=== PATIENT | male | born 1980 | race Two or more races ===

== ENCOUNTER 2023-04-07 10:09 | Outpatient (CLI) | payer OTHER ==
--- NOTE | 2023-04-07 10:52 | Sleep Patient Instructions ---
Sleep Center Visit Summary - Patient Visit Information Reason for Visit: Initial Consult - Patient Instructions Additional Instructions: You will continue with CPAP therapy with pressure changed to 10-12 cmH2O. A supply prescription will be updated with your DME. I have added a mask fitting for the nasal mask. The Cpap supply company should reach out to you to schedule this. We encourage you to continue to try to lose weight. Please follow up with the sleep care office in 1-2 months. - Clinic Information Contact: [facility] [address] [place] [address] [email or web address] T: [phone]
--- NOTE | 2023-04-07 11:00 | SLEEP CARE CONSULTATION ---
Information from patient questionnaire entered by Kisha Winters. I have reviewed and concur with the information entered by Kisha Winters. This document represents the service I personally performed and the decisions made by , Sana Avila ARNP. History of Present Illness Service Date and Time: 04/07/2023 1009 Reason for Visit: New patient, Previously diagnosed sleep apnea, sleep apnea on CPAP therapy Chief Complaint: reports: Other (Update supplies) Date of Onset: 2020 Usual bedtime: 10 PM Time it takes to fall asleep: 10 min Snores at night: Yes Observed to quit breathing while asleep: No Sleeps alone due to snoring: No Number of times waking at night: Once Reasons for waking at night: reports: Bathroom. denies: Choking, Gasping for air Toss, Turn, or Twitch while sleeping: Yes Recalls having dreams: Yes Usually gets out of bed at: 5-6 AM Feels refreshed in the morning: Yes Morning headache: Yes (Sometimes; 2 times a month; resolves in few hours) Sleepy or fatigued during the day: Yes Ever fallen asleep while driving: No Takes day naps: Yes (not often) Dreams during day naps: Yes Prior sleep studies: Yes Year and Where: 07/2021 [facility] Type of Sleep Study: Polysomnography Additional HPI information: JESSICA JEAN was previously diagnosed to have moderate, AHI 24.8, obstructive sleep apnea-hypopnea syndrome as seen in PSG dated 07/31/2021 through [facility] and returned today to establish care for CPAP therapy. - Parasomnia Symptoms Ever been unable to move upon waking from sleep: No Walks in sleep: No Talks in sleep: No Ever acted out dreams in sleep: No Ever felt weak in the knees when startled or emotional: No Bothered by creepy, crawly, restless sensations in legs: No Problems with memory or concentration: No CPAP Compliance Data - Data Reviewed with Patient Average duration of nightly device use: 1 hour 37 minutes Compliance rate %: 1 (15180 days used) Current pressure setting (cmH2O): 5-15 (median 11.8, avg 13.2, max 13.4) Average residual AHI: 3.2 Central apnea: 1.8 Obstructive apnea: 0.6 Hypopnea: 0.6 Average large leak: 4.7 L/min Compliance data discussion: He has a ResMed Airsense 11, setup in 10/2021. He has gotten his supplies from [facility]. He uses a Resmed AirFit F30 full face mask. He does have a back up mask. He last time he changed the cushion was 2 months. 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 denies: air blowing in eyes, mask leak noise, condensation in mask/hose, nasal congestion, epistaxis (dry mouth) Observed to snore while using device: No Current pressure setting perceived as: too high On therapy, patient: reports: other (not noticing difference because not able to use for good periods). 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 Patient is and lives in [place]. Have you smoked in the past 12 months: No Alcohol use: No Caffeine use: Yes Caffeine amount and frequency: 12 oz daily Family History Family history of sleep disordered breathing: Yes Family Hx Sleep Apnea: Father: Snoring Allergies and Home Medications Known drug allergies: No Drug allergies reviewed: Yes Home medication list reviewed: Yes Allergy and home medication list: Home Medications Medication Instructions Recorded Confirmed Last Taken Type No Known Home Medications 04/07/23 04/07/23 Unknown History Review of Systems Cardiovascular: denies: high blood pressure Respiratory: reports: wheeze Neurological: denies: headaches Ear/Nose/Throat: reports: wisdom teeth removed. denies: tonsillectomy Musculoskeletal: reports: joint pain (/stiffness), back pain, muscle pain or cramping, mobility problems Physical Exam Vital signs obtained and entered by: Sana Rodarte NP Blood Pressure: 120/74 Cuff size: wrist (left) Heart Rate: 81 O2 Saturation: 92 Height: 5 ft 8 in Weight: 211 lb 9.6 oz (with boots/fatigues on) Body Mass Index: 32.1 BMI Classification: Obese Neck circumference: 16.5 (inches) Mouth and throat: narrow oropharynx Soft palate: long Hard palate: arched Uvula: normal Uvula visualization: 25% Mallampati Class III Tongue: enlarged in size with teeth triana on lateral edges Tonsils: small Neck: normal w/o lymphadenopathy or thyromegaly Heart: regular rate and rhythm Lungs: clear bilaterally Impression and Plan 1. Obstructive Sleep Apnea-Hypopnea Syndrome, moderate, with poor treatment compliance and good apnea control. 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 He got it shipped to him later but has really only started using it again in March. He tries to use it but once the pressure goes up he feels it is too high and takes it off within the first 2 hours. He has occasionally been able to keep it on four hours. He would also like to try a different mask because he feels like the fullface mask is uncomfortable. He would like a nasal mask but I discussed with him because of oral dryness he is experiencing from oral venting that he will need to try to use a chinstrap. He voiced understanding. The patients pressure will be changed to autoCPAP 10-12 cmH20 for patient comfort. Patient advised to contact me if pressure change is uncomfortable so that it can be adjusted. Goals for apnea control discussed. I will have him follow-up in 1 to 2 months to recheck compliance. Patient's apnea severity and rationale for treatment to reduce apnea, improve sleep quality and reduce cardiovascular and cerebrovascular events was reviewed. 2. Obesity, unspecified. Currently patients BMI is 32.1 Obesity increases the risk of apnea, CPAP pressure requirements and overall health risks especially cardiovascular and diabetes. Thus patient is advised to lose weight. * Change auto CPAP pressure to 10-12 cmH2O * Update supply prescription * Notify me if snoring with mask or feeling that the pressure is too much or too little * Attempt to lose weight * Call this office if any problems using CPAP * Return for follow up in 1-2 months, or sooner if concerns arise Counseling Topics: Spare mask, Weight loss health impact Prescriptions: Device supplies (and mask fitting, pressure change) Follow up with Sleep Care in: 1-2 months Visit Type: In Office Time Spent with Patient (minutes): 35 Provider Statement: I spent 100% of the Face to Face Visit with the patient with greater than 50% spent counseling the patient and coordination of care.
[2023-04-07 11:02] VITALS: BP 120/74; O2SAT 92
== END 2023-04-07 10:10 | disposition home or self-care (01) ==
LOC: SC 10:09
PROVIDERS: ATTEND Nurse Practitioner Family
DX: G47.33 Obstructive sleep apnea (adult) (pediatric) (principal); E66.9 Obesity, unspecified; Z68.32 Body mass index [BMI] 32.0-32.9, adult
CPT/HCPCS: 99203; 99212

== ENCOUNTER 2023-05-12 12:35 | Outpatient (CLI) | payer OTHER | END 2023-05-12 12:36 | disposition home or self-care (01) | LOC: DI 12:35 | PROVIDERS: ATTEND Nurse Practitioner Family | DX: I51.7 Cardiomegaly (principal) | CPT/HCPCS: 93306 ==

== ENCOUNTER 2023-06-25 13:08 | Outpatient (CLI) | payer OTHER ==
--- NOTE | 2023-06-25 13:30 | Sleep Patient Instructions ---
Sleep Center Visit Summary - Patient Visit Information Reason for Visit: 7 week follow up - Patient Instructions Additional Instructions: You were here for follow up of CPAP therapy. You will be continued on CPAP therapy with pressure at 10-12 cmH2O. I have written for a mask refitting, your supplier should reach out to you to set this up. You should follow up with sleep care in 1-2 months. You may contact us sooner for any questions or concerns. - Clinic Information Contact: [facility] [address] [place] [address] [email or web address] T: [phone]
--- NOTE | 2023-06-25 13:34 | SLEEP CARE CONSULTATION ---
Information from patient questionnaire entered by Jhonathan Morocho. I have reviewed and concur with the information entered by Jhonathan Morocho. This document represents the service I personally performed and the decisions made by me, Sana Avila ARNP. History of Present Illness Service Date and Time: 06/25/2023 1308 Previous diagnosis: Moderate, Obstructive Sleep Apnea-Hypopnea Syndrome AHI: 24.8 (07/31/2021) Reason for follow up: other (7WEEK F/U) Equipment type: CPAP (RESMED Airsense 11, s/u 10/2021) Equipment obtained from: Other ([facility]) Mask style: Full face Mask brand: Resmed (AirFit F30) Backup mask available: No (need supplies) Last cushion change: about a month Prior sleep studies: Yes Year and Where: 07/[address] [facility] Type of Sleep Study: Polysomnography HPI additional information: JESSICA JEAN was diagnosed to have moderate, AHI 24.8, obstructive sleep apnea-hypopnea syndrome and returned today for CPAP therapy 7 week with pressure change follow-up. Sleep Study - Results Type of Sleep Study: Polysomnography Prior sleep studies: Yes Year and Where: 07/[address] [facility] CPAP Compliance Data - Data Reviewed with Patient Average duration of nightly device use: 2 HRS 2 MINS Compliance rate %: 3 (04/20/23-06/22/23; 24/64 days used) Current pressure setting (cmH2O): 10-12 Average residual AHI: 5.2 Central apnea: 1.9 Obstructive apnea: 2.1 Hypopnea: 1.1 Average large leak: 6.3 L/min Subjective Missed days of use due to: reports: travel, other (forget to put on sometimes) Patient concerns: reports: dry mouth, nose, throat (dry mouth, little bit on lips). denies: aerophagia, mask discomfort, air blowing in eyes, mask leak noise, condensation in mask/hose, nasal congestion, epistaxis Observed to snore while using device: Yes (sometimes) Current pressure setting perceived as: comfortable On therapy, patient: reports: other (does not feel he is using it enough, but occasional more usage he feels more energy) Initial [place] Sleepiness Scale score: 9 (in 2022) Current [place] Sleepiness Scale score: 13 (06/25/23) Allergies and Home Medications Known drug allergies: No Drug allergies reviewed: Yes Home medication list reviewed: Yes (no changes) Review of Systems Review of systems same as previous: Yes (NO CHANGE) Physical Exam Vital signs obtained and entered by: JHONATHAN Quach MA Blood Pressure: 127/89 (LEFT ARM) Cuff size: regular Heart Rate: 113 O2 Saturation: 94 Height: 5 ft 8 in Weight: 214 lb 12.8 oz Body Mass Index: 32.6 BMI Classification: Obese Impression and Plan 1. Obstructive Sleep Apnea-Hypopnea Syndrome, moderate, with poor treatment compliance and fair apnea control with minimal elevation of AHI. Patient is using a full face mask and feels like a different mask might make it easier to keep the mask on at night. He feels the pressure is more comfortable at the current setting even though it is minimally ineffective. I will not make further pressure changes today. He normally only makes about 2 hours in the mask before he takes it off. He has noticed improvement of his sleep when he is able to consistently use it even for a few hours a few nights in a row but otherwise is not noticing a lot of difference in his sleep. Obviously his compliance has suffered because of this and I will see him back in about 1 to 2 months to recheck his compliance. He voiced agreement and understanding. Patient advised to contact me if pressure change is uncomfortable so that it can be adjusted. Goals for apnea control discussed. Patient's apnea severity and rationale for treatment to reduce apnea, improve sleep quality and reduce cardiovascular and cerebrovascular events was reviewed. 2. Obesity, unspecified. Currently patients BMI is 32.6. Obesity increases the risk of apnea, CPAP pressure requirements and overall health risks especially cardiovascular and diabetes. Thus patient is advised to lose weight. * Continue auto CPAP pressure at 10-12 cmH2O * Notify me if snoring with mask or feeling that the pressure is too much or too little * Attempt to lose weight * Call this office if any problems using CPAP * Return for follow up in 1-2 months, or sooner if concerns arise Counseling Topics: Spare mask, Weight loss health impact Follow up with Sleep Care in: 1-2 months Visit Type: In Office Time Spent with Patient (minutes): 20 Provider Statement: I spent 100% of the Face to Face Visit with the patient with greater than 50% spent counseling the patient and coordination of care.
[2023-06-25 13:38] VITALS: BP 127/89; O2SAT 94
== END 2023-06-25 13:09 | disposition home or self-care (01) ==
LOC: SC 13:08
PROVIDERS: ATTEND Nurse Practitioner Family
DX: G47.33 Obstructive sleep apnea (adult) (pediatric) (principal); E66.9 Obesity, unspecified; Z68.32 Body mass index [BMI] 32.0-32.9, adult
CPT/HCPCS: 99212; 99213

== ENCOUNTER 2023-08-07 14:52 | Outpatient (CLI) | payer OTHER ==
--- NOTE | 2023-08-07 15:24 | Sleep Patient Instructions ---
Sleep Center Visit Summary - Patient Visit Information Reason for Visit: 1 month follow-up - Patient Instructions Additional Instructions: You were here for follow up of CPAP therapy. You will be continued on CPAP therapy with pressure at 10-12 cmH2O. You should follow up with sleep care in 1-2 months. You may contact us sooner for any questions or concerns. - Clinic Information Contact: [facility] [address] [place] [address] [email or web address] T: [phone]
--- NOTE | 2023-08-07 15:28 | SLEEP CARE CONSULTATION ---
Information from patient questionnaire entered by Jhonathan Morocho. I have reviewed and concur with the information entered by Jhonathan Morocho. This document represents the service I personally performed and the decisions made by me, Sana Avila ARNP. History of Present Illness Service Date and Time: 08/07/20231451 Previous diagnosis: Moderate, Obstructive Sleep Apnea-Hypopnea Syndrome AHI: 24.8 (07/31/2021) Reason for follow up: one month (F/U) Equipment type: CPAP (RESMED Airsense 11, s/u 10/2021) Equipment obtained from: Other ([employer]) Mask style: Full face Mask brand: Resmed (AirFit F30) Backup mask available: No (needs mask refitting done before he can get supplies) Last cushion change: 2 months Prior sleep studies: Yes Year and Where: 07/2021 [facility] Type of Sleep Study: Polysomnography HPI additional information: JESSICA JEAN was diagnosed to have moderate, AHI 24.8, obstructive sleep apnea-hypopnea syndrome and returned today for CPAP therapy one month follow-up. Sleep Study - Results Type of Sleep Study: Polysomnography Prior sleep studies: Yes Year and Where: 07/2021 [facility] CPAP Compliance Data - Data Reviewed with Patient Average duration of nightly device use: 2 HRS 8 MINS Compliance rate %: 3 (07/05/23-08/03/2415 days used) Current pressure setting (cmH2O): 10-12 Average residual AHI: 5.3 Central apnea: 0.3 Obstructive apnea: 2.8 Average large leak: 2.5 L/min Subjective Missed days of use due to: reports: mask issues (not able to get new mask), illness (bad cough) Patient concerns: denies: aerophagia, mask discomfort, air blowing in eyes, mask leak noise, condensation in mask/hose, nasal congestion, dry mouth, nose, throat, epistaxis Observed to snore while using device: No Current pressure setting perceived as: comfortable On therapy, patient: reports: sleeping better (slight improvement), more rested overall. denies: drowsiness while driving Initial [place] Sleepiness Scale score: 9 (in 2022) Current [place] Sleepiness Scale score: 9 (08/07/23) Allergies and Home Medications Known drug allergies: No Drug allergies reviewed: Yes Home medication list reviewed: Yes (no changes) Allergy and home medication list: Allergies No Known Drug Allergies Allergy (Verified 08/05/23 11:31) Review of Systems Review of systems same as previous: Yes (NO CHANGE) Physical Exam Vital signs obtained and entered by: JHONATHAN Quach MA Blood Pressure: 126/90 (LEFT ARM) Cuff size: regular Heart Rate: 77 O2 Saturation: 95 Height: 5 ft 8 in Weight: 217 lb 3.2 oz Body Mass Index: 33.0 BMI Classification: Obese Impression and Plan 1. Obstructive Sleep Apnea-Hypopnea Syndrome, moderate, with poor treatment compliance and good apnea control with minimally elevated residual AHI. He still has not been able to get his compliance of beyond 3%. He says he did reach out to oxygen and they said they would call back to schedule the refitting that was ordered at his last visit for his mask. He says it has been a week and they still have not called so he will have to call them back to schedule the mask fitting. He continues to try to use his mask but does not usually keep it on for more than 2 hours. He is only getting on his face half the time. I will have him make an appointment to come back in 1 to 2 months so that we can recheck that the fitting was done and hopefully his compliance has improved. He states he will be moving to [place] in October because he is retiring from the [employer]. Patient's apnea severity and rationale for treatment to reduce apnea, improve sleep quality and reduce cardiovascular and cerebrovascular events was reviewed. 2. Obesity, unspecified. Currently patients BMI is 33. Obesity increases the risk of apnea, CPAP pressure requirements and overall health risks especially cardiovascular and diabetes. Thus patient is advised to lose weight. * Continue auto CPAP pressure at 10-12 cmH2O * Notify me if snoring with mask or feeling that the pressure is too much or too little * Attempt to lose weight * Call this office if any problems using CPAP * Return for follow up in 1-2 months, or sooner if concerns arise Counseling Topics: Spare mask, Weight loss health impact Follow up with Sleep Care in: 1-2 months Visit Type: In Office Time Spent with Patient (minutes): 13 Provider Statement: I spent 100% of the Face to Face Visit with the patient with greater than 50% spent counseling the patient and coordination of care.
[2023-08-07 15:32] VITALS: BP 126/90; O2SAT 95
== END 2023-08-07 14:53 | disposition home or self-care (01) ==
LOC: SC 14:52
PROVIDERS: ATTEND Nurse Practitioner Family
DX: G47.33 Obstructive sleep apnea (adult) (pediatric) (principal); E66.9 Obesity, unspecified; Z68.33 Body mass index [BMI] 33.0-33.9, adult
CPT/HCPCS: 99212